=== PATIENT | male | born 1955 | race Caucasian/White ===

== ENCOUNTER 2021-12-29 14:06 | Emergency (ER) | payer MEDICARE ==
[~2021-12-29] VITALS: Ht 177.8 cm; Wt 125.0 kg
[2021-12-29] MEDS ORDERED: ACETAMINOPHEN/CODEINE#3 (300/30mg) TAB PO ONE (15:30)
[2021-12-29] MEDS ORDERED: IBUP600T27 PO (15:33)
[2021-12-29 15:47] VITALS: BP 125/78
== END 2021-12-29 15:51 | disposition home or self-care (01) ==
LOC: ER 14:06
DX: S52.601A Unspecified fracture of lower end of right ulna, initial encounter for closed fracture (principal); Z79.1 Long term (current) use of non-steroidal anti-inflammatories (NSAID); V87.8XXA Person injured in other specified noncollision transport accidents involving motor vehicle (traffic), initial encounter; Y93.89 Activity, other specified; Y92.89 Other specified places as the place of occurrence of the external cause; Y99.8 Other external cause status
CPT/HCPCS: 29125; 73110; 73130